=== PATIENT | male | born 1970 | race Caucasian/White ===

== ENCOUNTER 2019-12-02 10:07 | Day surgery (SDC) | payer BC ==
[2019-11-15 13:13] VITALS: BMI 27.8
[2019-12-02] MEDS ORDERED: LACTATED RINGERS 1,000 ML IV SCH (10:29)
[2019-12-02 10:33] VITALS: RESP 16; TEMP 98
[2019-12-02] MEDS ORDERED: LIDOCAINE 1% (10MG/ML) FOR IV START INTRADERMA ONE (10:51)
[2019-12-02] MEDS ORDERED: PROPOFOL 10 MG/ML 20 ML VIAL IV ONE (12:04)
[2019-12-02] MEDS ORDERED: LIDOCAINE 1% INJ 10MG/ML (20 ML MDV) ONE (12:04)
[2019-12-02] MEDS ORDERED: IV FLUID CONTINUATION 1,000 ML IV ONE (12:48)
--- NOTE | 2019-12-02 12:49 | P.PCN ---
Date of Procedure: 12/02/19 Description of Procedure: Brief history: Patient is a pleasant 49-year-old male presenting for outpatient EGD and colonoscopy for evaluation of anemia and screening for malignant neoplasm of the colon. Prior colonoscopy for abdominal pain and normal per his recollection. No family history of colon cancer. Patient reports a history of anemia for approximately one year. Procedure performed: Esophagogastroduodenoscopy with biopsy Colonoscopy with polypectomy Estimated blood loss: Minimal. Preoperative diagnosis: Anemia, screening for malignant neoplasm colon, remote history of colonoscopy. Anesthesia: MAC Procedure: After informed consent was obtained from the patient was brought into the endoscopy unit and IV sedation was administered by anesthesia under continuous monitoring. Initially upper endoscopy was done. The Olympus GF 190 video endoscope was inserted into the mouth and esophagus intubated without any difficulty and was gradually advanced into the stomach and duodenum and carefully examined. The bulb and second part of the duodenum appeared normal, with biopsies taken to rule out celiac sprue. The scope was then withdrawn into the stomach adequately insufflated with air and upon careful examination the antrum and body, cardia and fundus appeared normal, except for some mild erythema in the antrum and body suggestive of gastritis biopsies taken. The scope was then withdrawn into the esophagus. The GE junction was located at 37 cm to the incisors and biopsies. It appeared regular with no erythema erosions or ulcerations. Rest of the esophagus appeared normal. Patient tolerated the procedure well. At this time the patient continued to remain sedation. Initial digital rectal examination was normal. Olympus CF 190 video colonoscope was then inserted into the rectum and gradually advanced to the cecum without any difficulty. Careful examination was performed as the scope was gradually being withdrawn. The prep was excellent. The cecum, ascending colon, transverse colon, descending colon, sigmoid colon and rectum appeared normal. Multiple polyps removed with cold snare polypectomy measuring in size from 2 mm to 6 mm, one from the cecum, 2 from the ascending colon, one from the ileocecal valve and one from the transverse colon. Retroflexion was performed in the rectum and no lesions were noted, low-grade internal hemorrhoids seen. Patient tolerated the procedure well. Impression: 1. Mild gastritis. Biopsies taken of the duodenum, GE junction and antrum and body. 2. 5 polyps removed with cold snare polypectomy, 2 from the ascending colon, one from the cecum, one from the ileocecal valve and one from the transverse colon. Internal hemorrhoids. Recommendations: Findings of this examination were discussed with the patient as well as his family. Okay to resume diet. Okay to resume medications. Await pathology from polypectomies. Await pathology from biopsies. Continue current medical management. Would recommend repeat colonoscopy in 3 years pending pathology from polypectomies.
[2019-12-02 13:14] VITALS: BP 133/87; PULSE 58
== END 2019-12-02 13:42 | disposition home or self-care (01) ==
LOC: ORWHC2ENDO 10:07
PROVIDERS: ATTEND Internal Medicine
DX: Z12.11 Encounter for screening for malignant neoplasm of colon (principal); D12.0 Benign neoplasm of cecum; D12.2 Benign neoplasm of ascending colon; K29.50 Unspecified chronic gastritis without bleeding; D12.3 Benign neoplasm of transverse colon; D64.9 Anemia, unspecified; K21.00 Gastro-esophageal reflux disease with esophagitis, without bleeding; E78.5 Hyperlipidemia, unspecified; Z79.899 Other long term (current) drug therapy; K64.8 Other hemorrhoids
CPT/HCPCS: 88305; 45385; 43239; J2001; J2704